=== PATIENT | female | born 1990 | race African-American/Black ===

== ENCOUNTER 2018-11-05 06:10 | Emergency (ER) | payer OTHER ==
[~2018-11-05] VITALS: Ht 160 cm; Wt 71.8 kg
[2018-11-05] MEDS ORDERED: KETOROLAC 30 MG/ML VIAL (J1885) IV ONE (06:45)
[2018-11-05] MEDS ORDERED: birth control patch (06:49)
[2018-11-05 06:59] LABS: BASO # 0.1 10^3/uL (0.0-0.2); BASO % 0.6 % (0.0-1.0); EOS # 0.2 10^3/uL (0.0-0.50); EOS % 1.2 % (0.0-3.0); HEMATOCRIT 40.4 % (36.0-47.0); HEMOGLOBIN 13.7 g/dl (12.0-15.5); LYMPH # 3.1 10^3/uL (1.5-6.5); LYMPH % 24.3 % (24.0-44.0); MEAN CORPUSCULAR HEMOGLOBIN 31.4 pg (27.0-33.0); MEAN CORPUSCULAR HGB CONC 33.9 g/dl (32.0-36.5); MEAN CORPUSCULAR VOLUME 92.4 fl (80.0-96.0); MONO # 0.7 10^3/uL (0.0-0.8); MONO % 5.3 % (0.0-5.0); NEUTROPHILS # 8.6 10^3/uL (1.8-7.7); NEUTROPHILS % 68.1 % (36.0-66.0); PLATELET COUNT, AUTOMATED 222 10^3/uL (150-450); RED BLOOD COUNT 4.37 10^6/uL (4.00-5.40); WHITE BLOOD COUNT 12.6 10^3/uL (4.0-10.0)
[2018-11-05 07:25] LABS: HCG, SERUM QUALITATIVE NEGATIVE (NEGATIVE)
[2018-11-05 07:29] LABS: ALBUMIN 3.4 GM/DL (3.2-5.2); ALT/SGPT 19 U/L (12-78); BILIRUBIN,DIRECT 0.1 MG/DL (0.0-0.2); BILIRUBIN,TOTAL 0.5 MG/DL (0.2-1.0); BLOOD UREA NITROGEN 15 MG/DL (7-18); CALCIUM LEVEL 8.3 MG/DL (8.5-10.1); CARBON DIOXIDE LEVEL 25 MEQ/L (21-32); CHLORIDE LEVEL 109 MEQ/L (98-107); CREATININE FOR GFR 0.77 MG/DL (0.55-1.30); GLOMERULAR FILTRATION RATE > 60.0 (>60); GLUCOSE, FASTING 99 MG/DL (70-100); LIPASE 134 U/L (73-393); POTASSIUM SERUM 4.8 MEQ/L (3.5-5.1); SODIUM LEVEL 139 MEQ/L (136-145); TOTAL PROTEIN 6.9 GM/DL (6.4-8.2)
[2018-11-05] MEDS ORDERED: ISOVUE-370 76% 100ML VIAL (Q9967) As Ordered ONE (07:40)
--- NOTE | 2018-11-05 08:57 | REP ---
CT abdomen and pelvis with IV but without oral contrast: History: Right lower quadrant pain. CT contrast dose: 100 ml of intravenous Isovue 370. 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 Bowel gas pattern is unremarkable. The lung bases are clear on axial CT images. The liver is prominent in size with a vertical span in the midclavicular line measured at 16.6 cm. This is in the upper range of normal. There are numerous small hypervascular liver nodules scattered about the right and left lobes of the liver, the largest of these is in the left lobe measuring 1.9 cm. There are at least 12 identified hypervascular liver nodules most of which are quite small under 1 cm. No focal splenic lesion is seen. The spleen is not enlarged. No pancreatic mass or cyst is seen. No renal mass lesion is observed. The kidneys are morphologically intact. No hydronephrosis is seen. Contrast enhancement of the kidneys is normal and symmetric. The gallbladder is unremarkable. Small and large intestinal bowel loops are normal in the abdomen and pelvis. No uterine or ovarian mass lesion is seen. No abdominal wall defect is observed. The appendix is not seen. No inflammatory changes are noted in the lower abdomen on either side. There is no evidence of bowel obstruction. No abdominal wall defect is seen. Bone window settings show no significant bony abnormality. Impression: No acute intra-abdominal abnormality. There are multiple hypervascular liver lesions in a borderline enlarged liver. Differential possibilities for this include regenerative or dysplastic nodules, metastatic or multifocal malignancy as well as multiple benign hemangiomas. Further evaluation with hepatic MRI study without and with IV contrast suggested. Hepatic sonography should also be performed. We will try to retrieve outside prior abdominal imaging studies. Electronically Signed by Steven Mcguire MD 11/05/2018 01:31 P
--- NOTE | 2018-11-05 09:46 | REP ---
Right upper quadrant sonography: History: Multiple hypervascular liver lesions on CT. Findings: Scanning through the right upper quadrant of the abdomen demonstrates normal sized thin-walled gallbladder without evidence of stone or polyp. Common bile duct is normal measuring 0.3 cm in greatest diameter. No focal liver lesion is seen by ultrasound. In the area of the left lobe where the CT study shows the largest lesion there is an equivocal area of slightly increased echogenicity. No other focal liver lesion can be identified. No abnormalities noted in the pancreas. There is no evidence of ascites or right renal abnormality. The right kidney measures 11.8 x 5.9 x 5.1 cm. Impression: There are equivocal changes at the site of the largest of liver lesions in the left lobe. The other lesions seen by CT are not seen by ultrasound. No other sonographic abnormality. Electronically Signed by Steven Mcguire MD 11/05/2018 09:37 A
[2018-11-05 10:00] VITALS: BP 118/76
[2018-11-05 10:09] LABS: APPEARANCE, URINE CLEAR (CLEAR); BACTERIA, URINE AUTO 1+ (NEGATIVE); BILIRUBIN, URINE AUTO NEGATIVE (NEGATIVE); BLOOD, URINE BLOOD NEGATIVE (NEGATIVE); COLOR, URINE YELLOW (YELLOW); GLUCOSE, URINE (UA) AUTO NEGATIVE (NEGATIVE); KETONE, URINE AUTO NEGATIVE (NEGATIVE); LEUKOCYTE ESTERASE, URINE AUTO 1+ (NEGATIVE); MUCUS, URINE SMALL (NEGATIVE); NITRITE, URINE AUTO NEGATIVE (NEGATIVE); PROTEIN, URINE AUTO NEGATIVE (NEGATIVE); RBC, URINE AUTO 5 /HPF (0-3); SQUAMOUS EPITHELIAL CELL UR AU 13 /HPF (0-6); UROBILINOGEN, URINE AUTO 0.2 mg/dL (0.0-2.0); WBC, URINE AUTO 1 /HPF (0-3)
[2018-11-05 10:24] LABS: SPECIFIC GRAVITY URINE AUTO >1.060 (1.002-1.035)
[2018-11-05] MEDS ORDERED: MACR100C43 PO ×2 (10:31→12:40)
--- NOTE | 2018-11-09 14:35 | ED PDOC ---
Post-Departure Follow-Up [facility] faxed formal report of ct abd/p for fu Jonna Gardner MD Nov 09, 2018 14:34
--- NOTE | 2018-11-12 11:25 | ED PDOC ---
Post-Departure Follow-Up [facility] faxed formal report of ct abd/p for fu Jonna Gardner MD Nov 12, 2018 11:25
== END 2018-11-05 10:54 | disposition home or self-care (01) ==
LOC: M ED 06:10
DX: N39.0 Urinary tract infection, site not specified (principal); K76.9 Liver disease, unspecified; Z72.0 Tobacco use; Z79.3 Long term (current) use of hormonal contraceptives
CPT/HCPCS: 36415; 74177; 76705; 80048; 80076; 81001; 83690; 84703; 85025; 96374; 99284; J1885; Q9967

== ENCOUNTER → 2019-02-25 | Outpatient (CLI) | payer OTHER ==
[~2019-02-25] MED LIST: MACR100C43 PO; birth control patch
== END ==
LOC: M RAD 14:55
PROVIDERS: ATTEND Physician Assistant
DX: K76.89 Other specified diseases of liver (principal); Z53.9 Procedure and treatment not carried out, unspecified reason

== ENCOUNTER 2019-03-15 10:59 | Emergency (ER) | payer OTHER ==
[~2019-03-15] VITALS: Ht 162.6 cm; Wt 78.6 kg
[2019-03-15 11:38] LABS: BASO # 0.1 10^3/uL (0.0-0.2); BASO % 0.6 % (0.0-1.0); EOS # 0.1 10^3/uL (0.0-0.50); EOS % 0.6 % (0.0-3.0); HEMATOCRIT 41.8 % (36.0-47.0); LYMPH % 15.9 % (24.0-44.0); MEAN CORPUSCULAR HEMOGLOBIN 31.2 pg (27.0-33.0); MEAN CORPUSCULAR HGB CONC 33.5 g/dl (32.0-36.5); MEAN CORPUSCULAR VOLUME 93.1 fl (80.0-96.0); MONO # 0.6 10^3/uL (0.0-0.8); MONO % 4.8 % (0.0-5.0); NEUTROPHILS # 9.9 10^3/uL (1.8-7.7); NEUTROPHILS % 77.9 % (36.0-66.0); PLATELET COUNT, AUTOMATED 220 10^3/uL (150-450); RED BLOOD COUNT 4.49 10^6/uL (4.00-5.40); WHITE BLOOD COUNT 12.7 10^3/uL (4.0-10.0)
[2019-03-15 11:53] LABS: ALBUMIN 3.6 GM/DL (3.2-5.2); ALT/SGPT 19 U/L (12-78); BILIRUBIN,DIRECT 0.1 MG/DL (0.0-0.2); BILIRUBIN,TOTAL 0.4 MG/DL (0.2-1.0); BLOOD UREA NITROGEN 12 MG/DL (7-18); CALCIUM LEVEL 9.4 MG/DL (8.5-10.1); CARBON DIOXIDE LEVEL 28 MEQ/L (21-32); CHLORIDE LEVEL 105 MEQ/L (98-107); CREATININE FOR GFR 0.85 MG/DL (0.55-1.30); GLOMERULAR FILTRATION RATE > 60.0 (>60); GLUCOSE, FASTING 95 MG/DL (70-100); LIPASE 98 U/L (73-393); POTASSIUM SERUM 4.2 MEQ/L (3.5-5.1); SODIUM LEVEL 138 MEQ/L (136-145); TOTAL PROTEIN 7.3 GM/DL (6.4-8.2)
[2019-03-15] MEDS ORDERED: ISOVUE-370 76% 100ML VIAL (Q9967) As Ordered ONE (12:22)
[2019-03-15 14:11] VITALS: BP 133/58
--- NOTE | 2019-03-16 07:25 | REP ---
CT ABDOMEN AND PELVIS WITH IV CONTRAST ONLY: REASON FOR EXAMINATION: Right lower quadrant pain. Evaluate for appendicitis. COMPARISON: CT abdomen and pelvis with IV contrast only of 11/05/2018. TECHNIQUE: CT of the abdomen and pelvis was performed following the uneventful intravenous administration of 100 mL Isovue 370. Axial, coronal and sagittal images are available for review. FINDINGS: The lung bases are unremarkable. The liver is heterogeneous in attenuation with several scattered foci of hyperattenuation, unchanged from prior. The gallbladder is partially distended. The spleen, adrenal glands, pancreas and kidneys are unremarkable. The abdominal aorta is normal in contour. There is no retroperitoneal adenopathy. The large and small bowel are partially distended. The appendix is not seen, similar to prior. There are no pericecal signs of inflammation such as soft tissue stranding or focal fluid collection or enlarged regional lymph nodes. There is no intraperitoneal free air. Within the pelvis, the uterus is present. There is a 2.4 cm x 2.4 cm left adnexal cystic lesion and pelvic free fluid, new since the prior study. The osseous structures are unremarkable. There is a subcentimeter soft tissue nodule within the right buttocks subcutaneous fat which is nonspecific. IMPRESSION: 1. No evidence of appendicitis. Although the appendix is not seen, there are no secondary signs of pericecal inflammation. 2. 2.4 cm left adnexal cyst with small amount of pelvic free fluid, new since the prior study. This could represent partial rupture of adnexal cyst. 3. Similar appearance of the liver with scattered foci of hyperattenuation which may represent flash-filling hemangiomas. Again, other early enhancing lesions such as metastases are not excluded. Electronically Signed by Desmond Gomez MD 03/16/2019 07:59 A
--- NOTE | 2019-03-20 19:53 | ED PDOC ---
Post-Departure Follow-Up [facility] faxed formal report of ct abd/p for fu. pt also sent certifed letter regarding ct report ? mets? see report. needs fu thangg Jonna Rodriguez MD Mar 20, 2019 19:53
== END 2019-03-15 14:19 | disposition home or self-care (01) ==
LOC: M ED 10:59
DX: N83.202 Unspecified ovarian cyst, left side (principal); D72.829 Elevated white blood cell count, unspecified
CPT/HCPCS: 36415; 74177; 80048; 80076; 81001; 83690; 84702; 85025; 87086; 99284; Q9967

== ENCOUNTER → 2019-03-29 | Outpatient (CLI) | payer OTHER ==
[~2019-03-29] MED LIST changes: +PROHANCE 279.3MG/ML 15ML VIAL (A9576) As Ordered ONE
--- NOTE | 2019-03-29 17:22 | REP ---
MRI LIVER WITH AND WITHOUT CONTRAST: COMPARISON: CT exam most recently 03/15/2019. TECHNIQUE: Multiple sequences were obtained in the axial and coronal planes prior to and following the intravenous administration of [address] exams of 03/15/2019 and 11/05/2018 showed multiple small enhancing nodules. The largest was in the left lobe measuring about 1.7 cm in diameter. Today's MRI shows subtle T1 hypointensity and T2 hyperintensity at the site of the largest nodule in the left lobe. There is also a subtle enhancement in the arterial phase of post-contrast imaging. Size is unchanged, 1.7 cm in maximum diameter. No other enhancing liver nodule is seen by MRI. The spleen is normal in size with no intrinsic abnormality. The adrenal glands, pancreas and kidneys are unremarkable. The abdominal aorta is normal in caliber. There is no adenopathy. There is no free fluid. IMPRESSION: Only the largest of the previously identified enhancing liver nodules is seen, in the inferior left lobe, 1.7 cm in diameter. It is subtly seen on T2 weighted images and demonstrates subtle arterial phase enhancement. The multiple other smaller enhancing liver nodules on CT are not seen by MRI. Given that the largest nodule has remained stable since November 2018 and there does not appear to be any progression of any of the previously noted enhancing nodules I would recommend a followup CT of the liver with IV contrast in 6 months. Electronically Signed by Billy Sommers MD 03/30/2019 12:16 A
== END ==
LOC: M RAD 14:44
PROVIDERS: ATTEND Emergency Medicine
DX: K76.89 Other specified diseases of liver (principal)
CPT/HCPCS: 74183; A9576

== ENCOUNTER 2020-04-04 08:33 | Emergency (ER) | payer OTHER ==
[~2020-04-04] VITALS: Ht 162.6 cm; Wt 71.6 kg
[~2020-04-04 08:33] MED LIST changes: -PROHANCE 279.3MG/ML 15ML VIAL (A9576) As Ordered ONE
[2020-04-04] MEDS ORDERED: IBUP200T45 PO (08:41)
[2020-04-04] MEDS ORDERED: VENL37.598 PO (08:41)
[2020-04-04 09:54] LABS: BASO # 0.1 10^3/uL (0.0-0.2); BASO % 0.8 % (0.0-1.0); EOS # 0.1 10^3/uL (0.0-0.5); EOS % 0.9 % (0.0-3.0); HEMATOCRIT 39.5 % (36.0-47.0); HEMOGLOBIN 13.2 g/dl (12.0-15.5); LYMPH # 2.3 10^3/uL (1.5-5.0); LYMPH % 21.5 % (24.0-44.0); MEAN CORPUSCULAR HEMOGLOBIN 31.7 pg (27.0-33.0); MEAN CORPUSCULAR HGB CONC 33.4 g/dl (32.0-36.5); MEAN CORPUSCULAR VOLUME 94.7 fl (80.0-96.0); MONO # 0.6 10^3/uL (0.0-0.8); MONO % 5.5 % (0.0-5.0); NEUTROPHILS # 7.6 10^3/uL (1.5-8.5); NEUTROPHILS % 71.1 % (36.0-66.0); PLATELET COUNT, AUTOMATED 218 10^3/uL (150-450); RED BLOOD COUNT 4.17 10^6/uL (4.00-5.40); WHITE BLOOD COUNT 10.8 10^3/uL (4.0-10.0)
[2020-04-04 10:11] LABS: ALBUMIN 3.5 GM/DL (3.2-5.2); BILIRUBIN,DIRECT 0.3 MG/DL (0.0-0.2); TOTAL PROTEIN 6.5 GM/DL (6.4-8.2)
[2020-04-04 11:12] LABS: CHLAMYDIA DNA AMPLIFICATION NEGATIVE (NEGATIVE); GC DNA AMPLIFICATION NEGATIVE (NEGATIVE)
--- NOTE | 2020-04-04 14:49 | REPVR ---
PROCEDURE INFORMATION: Exam: US Nonobstetric Pelvis; Complete Exam date and time: 04/04/2020 2:42 PM Age: 29 years old Clinical indication: Dysmenorrhea and pelvic pain and perianal pain; Additional info: Bilat pelvic pain, passing larger clots, on menses TECHNIQUE: Imaging protocol: Transabdominal pelvic nonobstetric ultrasound. Complete exam. Real time ultrasound with image documentation. COMPARISON: CT ABD/PEL W/IV CONTRAST ONLY 03/15/2019 12:28 PM FINDINGS: Uterus/cervix: Uterus measures 9.2 by 3.9 by 5.3 cm. Normal caliber of the endometrium measuring 5 mm in diameter. 1 mm punctate echogenic focus in the endometrium is incidentally noted. Right adnexa: Right ovary measures 3.0 x 1.6 x 1.6 cm. Subcentimeter follicles. Right ovarian blood flow demonstrated. Left adnexa: Left ovary measures 2.8 x 1.9 x 2.5 cm. Subcentimeter follicles. Left ovarian blood flow demonstrated. Intraperitoneal space: No significant free fluid. Bladder: Unremarkable bladder. IMPRESSION: No significant sonographic abnormality in the visualized pelvis. Electronically signed by: Giovanni Deutsch On 04/04/2020 14:49:37 PM
[2020-04-04 15:14] VITALS: BP 120/73
== END 2020-04-04 15:16 | disposition home or self-care (01) ==
LOC: M ED 08:33
DX: N94.6 Dysmenorrhea, unspecified (principal); N92.0 Excessive and frequent menstruation with regular cycle; F17.200 Nicotine dependence, unspecified, uncomplicated; A59.9 Trichomoniasis, unspecified

== ENCOUNTER 2020-08-14 13:56 | Emergency (ER) | payer OTHER ==
[~2020-08-14] VITALS: Ht 160 cm; Wt 77.0 kg
[~2020-08-14 13:56] MED LIST changes: +IBUP200T45 PO; +VENL37.598 PO
[2020-08-14 15:17] LABS: BASO # 0.1 10^3/uL (0.0-0.2); BASO % 0.7 % (0.0-1.0); EOS # 0.1 10^3/uL (0.0-0.5); EOS % 1.2 % (0.0-3.0); HEMATOCRIT 42.2 % (36.0-47.0); HEMOGLOBIN 13.4 g/dl (12.0-15.5); LYMPH # 2.7 10^3/uL (1.5-5.0); LYMPH % 30.5 % (24.0-44.0); MEAN CORPUSCULAR HEMOGLOBIN 30.2 pg (27.0-33.0); MEAN CORPUSCULAR HGB CONC 31.8 g/dl (32.0-36.5); MEAN CORPUSCULAR VOLUME 95.3 fl (80.0-96.0); MONO # 0.7 10^3/uL (0.0-0.8); MONO % 8.2 % (0.0-5.0); NEUTROPHILS # 5.3 10^3/uL (1.5-8.5); NEUTROPHILS % 59.1 % (36.0-66.0); PLATELET COUNT, AUTOMATED 229 10^3/uL (150-450); RED BLOOD COUNT 4.43 10^6/uL (4.00-5.40); WHITE BLOOD COUNT 8.9 10^3/uL (4.0-10.0)
--- NOTE | 2020-08-14 15:28 | REP ---
INDICATION: low right abdominal pain. COMPARISON: None. TECHNIQUE: Transabdominal scanning performed. FINDINGS: Uterine dimensions are 7.1 x 4.0 x 5.2 cm. Endometrial echo is 4 mm in AP dimension and centrally placed. The bladder measures 3.5 x 5.5 cm. The right ovary has dimensions of 2.5 x 2.0 x 2.3 cm. It's Doppler flow is normal with a resistive index of 0.62. The left ovary dimensions are 2.7 x 3.6 x 1.6 cm. It's Doppler flow was normal with resistive index of 0.68. There is no adnexal mass identified. No free fluid is seen in the cul-de-sac. IMPRESSION: Negative pelvic ultrasound. <Electronically signed by Billy Sommers > 08/14/20 [id number]
[2020-08-14 15:46] LABS: BLOOD UREA NITROGEN 12 MG/DL (7-18); CALCIUM LEVEL 9.3 MG/DL (8.5-10.1); CARBON DIOXIDE LEVEL 28 MEQ/L (21-32); CHLORIDE LEVEL 108 MEQ/L (98-107); CREATININE FOR GFR 0.93 MG/DL (0.55-1.30); GLOMERULAR FILTRATION RATE > 60.0 (>60); GLUCOSE, FASTING 70 MG/DL (70-100); POTASSIUM SERUM 4.2 MEQ/L (3.5-5.1); SODIUM LEVEL 142 MEQ/L (136-145)
--- OUTSIDE RECORDS SUMMARY | 2020-08-14 15:50 | CCD ---
Author Author [facility] Organization [facility] Address Unknown Phone Unavailable Care Team Providers Care Physical Chemistry Professor Name Role Phone BEE, R SUDHA SHIPBOARD INTELLIGENCE ANALYST Unavailable Unavailable BEE, R SUDHA SHIPBOARD INTELLIGENCE ANALYST Unavailable Unavailable BEE, R SUDHA SHIPBOARD INTELLIGENCE ANALYST Unavailable Unavailable BEE, R SUDHA SHIPBOARD INTELLIGENCE ANALYST Unavailable Unavailable BEE, R SUDHA SHIPBOARD INTELLIGENCE ANALYST Unavailable Unavailable BEE, R SUDHA SHIPBOARD INTELLIGENCE ANALYST Unavailable Unavailable BEE, R SUDHA SHIPBOARD INTELLIGENCE ANALYST Unavailable Unavailable BEE, R SUDHA SHIPBOARD INTELLIGENCE ANALYST Unavailable Unavailable BEE, R SUDHA SHIPBOARD INTELLIGENCE ANALYST Unavailable Unavailable BEE, R SUDHA SHIPBOARD INTELLIGENCE ANALYST Unavailable Unavailable BEE, R SUDHA SHIPBOARD INTELLIGENCE ANALYST Unavailable Unavailable BEE, R SUDHA SHIPBOARD INTELLIGENCE ANALYST Unavailable Unavailable BEE, R SUDHA SHIPBOARD INTELLIGENCE ANALYST Unavailable Unavailable BEE, R SUDHA SHIPBOARD INTELLIGENCE ANALYST Unavailable Unavailable BEE, R SUDHA SHIPBOARD INTELLIGENCE ANALYST Unavailable Unavailable BEE, R SUDHA SHIPBOARD INTELLIGENCE ANALYST Unavailable Unavailable BEE, R SUDHA SHIPBOARD INTELLIGENCE ANALYST Unavailable Unavailable BEE, R SUDHA SHIPBOARD INTELLIGENCE ANALYST Unavailable Unavailable BEE, R SUDHA SHIPBOARD INTELLIGENCE ANALYST Unavailable Unavailable BEE, R SUDHA SHIPBOARD INTELLIGENCE ANALYST Unavailable Unavailable BEE, R SUDHA SHIPBOARD INTELLIGENCE ANALYST Unavailable Unavailable BEE, R SUDHA SHIPBOARD INTELLIGENCE ANALYST Unavailable Unavailable BEE, R SUDHA SHIPBOARD INTELLIGENCE ANALYST Unavailable Unavailable BEE, R SUDHA SHIPBOARD INTELLIGENCE ANALYST Unavailable Unavailable BEE, R SUDHA SHIPBOARD INTELLIGENCE ANALYST Unavailable Unavailable EBE, R SUDHA SHIPBOARD INTELLIGENCE ANALYST Unavailable Unavailable BEE, R SUDHA SHIPBOARD INTELLIGENCE ANALYST Unavailable Unavailable BEE, R SUDHA SHIPBOARD INTELLIGENCE ANALYST Unavailable Unavailable BEE, R SUDHA SHIPBOARD INTELLIGENCE ANALYST Unavailable Unavailable BEE, R SUDHA SHIPBOARD INTELLIGENCE ANALYST Unavailable Unavailable BEE, R SUDHA SHIPBOARD INTELLIGENCE ANALYST Unavailable Unavailable BEE, R SUDHA SHIPBOARD INTELLIGENCE ANALYST Unavailable Unavailable BEE, R SUDHA SHIPBOARD INTELLIGENCE ANALYST Unavailable Unavailable BEE, R SUDHA SHIPBOARD INTELLIGENCE ANALYST Unavailable Unavailable BEE, R SUDHA SHIPBOARD INTELLIGENCE ANALYST Unavailable Unavailable BEE, R SUDHA SHIPBOARD INTELLIGENCE ANALYST Unavailable Unavailable BEE, R SUDHA SHIPBOARD INTELLIGENCE ANALYST Unavailable Unavailable BEE, R SUDHA SHIPBOARD INTELLIGENCE ANALYST Unavailable Unavailable BEE, R SUDHA SHIPBOARD INTELLIGENCE ANALYST Unavailable Unavailable BEE, R SUDHA SHIPBOARD INTELLIGENCE ANALYST Unavailable Unavailable BEE, R SUDHA SHIPBOARD INTELLIGENCE ANALYST Unavailable Unavailable RIVERA, J NOVEMBER Unavailable Unavailable Re-disclosure Warning The records that you are about to access may contain information from federally-assisted alcohol or drug abuse programs. If such information is present, then the following federally mandated warning applies: This information has been disclosed to you from records protected by federal confidentiality rules (42 CFR part 2). The federal rules prohibit you from making any further disclosure of this information unless further disclosure is expressly permitted by the written consent of the person to whom it pertains or as otherwise permitted by 42 CFR part 2. A general authorization for the release of medical or other information is NOT sufficient for this purpose. The Federal rules restrict any use of the information to criminally investigate or prosecute any alcohol or drug abuse patient.The records that you are about to access may contain highly sensitive health information, the redisclosure of which is protected by Article 27-F of the [facility] Public Health law. If you continue you may have access to information: Regarding HIV / AIDS; Provided by facilities licensed or operated by the [facility] Office of Mental Health; or Provided by the [facility] Office for People With Developmental Disabilities. If such information is present, then the following [facility] mandated warning applies: This information has been disclosed to you from confidential records which are protected by state law. State law prohibits you from making any further disclosure of this information without the specific written consent of the person to whom it pertains, or as otherwise permitted by law. Any unauthorized further disclosure in violation of state law may result in a fine or skilled nursing sentence or both. A general authorization for the release of medical or other information is NOT sufficient authorization for further disc losure. Allergies and Adverse Reactions Type Description Substance Reaction Status Data Source(s ) Drug Class NO KNOWN ALLERGIES NO KNOWN ALLERGIES [facility] Encounters Encounter Providers Location Date Indications Data Source(s ) Outpatient Attender: SUDHA BEE NPReferrer: GUILLERMO ANDINO RS [id number] 04/05/2020 12:00:00 AM EDT [facility] Insurance Providers Payer name Policy type / Coverage type Policy ID Covered constitution party ID Covered constitution party's relationship to mata Policy Mata Plan Information [employer] [id number] SP [id number] [employer] O [id number] U [id number] Self [id number] EAST [employer] - O/P [id number] 18 [id number] [employer] [id number] SP [id number] U [id number] Self [id number] U [id number] Self [id number] Results ID Date Data Source [id number] 04/05/2020 02:47:36 PM EDT [facility] Name Value Range Interpretation Code Description Data Adela rce(s) Supporting Document(s) Progress Note [facility] [id number] [file] [id number] Procedure Social History Code Duration Value Status Description Data Source(s ) Alcohol intake 04/05/2020 12:00:00 AM EDT Current drinker of al cohol (finding) completed Current drinker of alcohol (finding) [facility] Tobacco use and exposure 04/05/2020 12:00:00 AM EDT Never used co mpleted Never used [facility] Smoking 04/05/2020 12:00:00 AM EDT Current every day smoker co mpleted Current every day smoker [facility]
[2020-08-14 16:01] VITALS: BP 120/70
== END 2020-08-14 16:02 | disposition home or self-care (01) ==
LOC: M ED 13:56
DX: R10.31 Right lower quadrant pain (principal); N92.0 Excessive and frequent menstruation with regular cycle; R11.0 Nausea; F17.200 Nicotine dependence, unspecified, uncomplicated; Z79.3 Long term (current) use of hormonal contraceptives

== ENCOUNTER 2020-10-18 13:19 | Emergency (ER) | payer OTHER ==
[~2020-10-18] VITALS: Ht 160 cm; Wt 81.5 kg
[2020-10-18 15:25] VITALS: BP 133/84
== END 2020-10-18 15:27 | disposition home or self-care (01) ==
LOC: M ED 13:19
DX: N93.9 Abnormal uterine and vaginal bleeding, unspecified (principal)